=== PATIENT | male | born 1955 | race Caucasian/White ===

== ENCOUNTER 2023-05-31 14:09 | Emergency (ER) | payer MEDICARE, BC ==
[~2023-05-31] VITALS: Ht 167.6 cm; Wt 77.2 kg
[2023-05-31] MEDS ORDERED: SODIUM CHLORIDE 0.9% 1,000 ML IV ONE (14:30)
[2023-05-31 14:45] LABS: Basophils # (auto) 0.1 10 ^3/uL (0-0.2); Basophils % (auto) 1.1 % (0.0-2.0); Eosinophils # (auto) 0.2 10 ^3/uL (0-0.8); Eosinophils % (auto) 2.4 % (0.0-7.0); Hematocrit 38.8 % (41.0-53.0); Hemoglobin 12.8 g/dL (13.5-17.5); Lymphocytes % (auto) 19.7 % (10.0-50.0); Mean Corpuscular Hemoglobin 29.8 pg (28.0-32.0); Mean Corpuscular Volume 90.2 fL (80.0-100.0); Monocytes # (auto) 0.6 10 ^3/uL (0-1.3); Monocytes % (auto) 5.9 % (0.0-12.0); Neutrophils % (auto) 70.9 % (37.0-80.0); Red Cell Distribution Width 16.4 % (11.8-14.3); White Blood Cell 9.9 10^3/uL (4.4-10.8)
[2023-05-31 15:04] VITALS: PULSE 78
[2023-05-31 15:04] LABS: Potassium 3.7 mmol/L (3.5-5.1)
[2023-05-31 15:12] LABS: Albumin 3.5 g/dL (3.4-5.0); Bilirubin, Total 0.4 mg/dL (0.2-1.0); Calcium 8.8 mg/dL (8.5-10.1); Total Protein 6.4 g/dL (6.4-8.2)
[2023-05-31 17:01] LABS: Urine Bacteria NONE SEEN /hpf (None Seen); Urine Blood Negative /uL (Negative); Urine Clarity HAZY (Clear); Urine Color Yellow (Yellow); Urine Hyaline Cast FEW /lpf (0 - 2); Urine Mucus FEW (None Seen); Urine Protein, UAD 1+ (Negative); Urine Specific Gravity 1.024 (1.001-1.035); Urine Urobilinogen Normal (Negative); Urine WBC 14 /hpf (0 - 3); Urine pH 5.5 (5.0-8.0)
[2023-05-31] MEDS ORDERED: FER325T PO (17:25)
[2023-05-31] MEDS ORDERED: BACDST PO (17:25)
[2023-05-31 17:43] VITALS: BP 104/70; PULSE 80; RESP 18; TEMP 98; O2SAT 96
== END 2023-05-31 17:46 | disposition home or self-care (01) ==
LOC: EDBD 14:09 → ER 14:09
DX: R55 Syncope and collapse (principal); N39.0 Urinary tract infection, site not specified
CPT/HCPCS: 36415; 70450; 80053; 81001; 83690; 83880; 84484; 85025; 93005; 96360; 99284; J7030